=== PATIENT | female | born 1965 | race Caucasian/White ===

== ENCOUNTER 2016-09-13 10:20 | Emergency (ER) | payer MEDICARE ==
--- NOTE | ~2016-09-13 | CR63 ---
[facility] A Service of [facility] RADIOLOGY TEXT RESULTS PATIENT: DAREK ALMEIDA LOCATION: [facility] : 61 UNIT #: [id number] AGE: [address]: CRISTELA VAUGHN SEX: F ORDER DR: [id number] [facility] [address] [place], [place] [address] [id number] E MR#: [id number] Acc #: [id number] NAME: DAREK ALMEIDA. : 1965 SEX: F STUDY DATE/TIME: 09/13/2016 11:22 UNIT: [facility] ROOM: STUDY DESCRIPTION: CR Chest 2 View Attending Physician: Cristela Vaughn Aprn Ordering Physician: Ed Doctor [id number] [facility] Primary Care Physician: Comfort Meier M.D. MEDICAL IMAGING REPORT This report is preliminary unless electronic signature is present EXAM PA and lateral chest 09/13/2016. COMPARISON Previous chest of 08/08/2015 HISTORY Short of breath for 2 years. FINDINGS PA and lateral views are obtained. The cardiovascular configuration of the chest is normal and the lungs are clear. CONCLUSION No active disease. Dictated by... Aakash Vazquez M.D. THIS IS AN ELECTRONICALLY VERIFIED REPORT Aakash Vazquez M.D. at 09/15/2016 2:19 PM Paras TD: 09/13/2016 14:30 JOB #: [id number] MEDICAL IMAGING REPORT Page 1 of 1 COPY
--- NOTE | ~2016-09-13 | EKG ---
PATIENT: DAREK ALMEIDA UNIT #: [id number] Ventricular Rate: 78 BPM Atrial Rate: 78 BPM P-R Interval: 174 ms QRS Duration: 78 ms Q-T Interval: 376 ms QTC Calculation(Bezet): 428 ms P [place]: 39 degrees Calculated R [place]: 23 degrees Calculated T [place]: 38 degrees Diagnosis Line: Normal sinus rhythm Diagnosis Line: Normal ECG Diagnosis Line: When compared with ECG of 08-AUG-2015 20:49, Diagnosis Line: No significant change was found Diagnosis Line: Confirmed by SHWETHA MELENDEZ MD ([id number]) on 09/13/2016 Diagnosis Line: 10:20:42 PM INTERPRETING MD: NORA SUTHERLAND
[~2016-09-13 10:20] MED LIST: ADVIL200 M2; ANTIFUNGAL30 G1 TOP; BACTRIM DS TABL1 TA1 PO; BENADRYL PO; CARAFATE1 G PO; CIPRO PO; CLARITIN10 MG; CLINDAMYCIN HC300 MG PO; FLEXERIL PO; FLEXERIL10 M1 PO; FLEXERIL10 MG PO; FLOMAX0.4 M1 PO; IBUPROFEN PO; IBUPROFEN100 MG PO; IBUPROFEN800 MG PO; IMMODIUM AD PO; KLONOPIN PO; KLONOPIN0.5 MG PO; LASIX; MACROBID 100 M100 MG PO; MEDROL DOSEPAK4 MG PO; MOTRIN400 M1 PO; NAPROXEN PO; NEURONTIN300 MG PO; NYSTATIN-TRIAMC15 G1 TD; NYSTATIN1 EAC1; PHENERGAN PO; PRED MILD5 ML OD; PREDNISONE PO; RANITIDINE HCL150 M1 PO; RITE-AID PHARMACY; ROBAXIN PO; SALINE NOSE SPR45 M1 NS; SINUS RELIEF14.7 M1 NS; SYSTANE ULTRA 010 M1 OU; TORADOL10 MG PO; TRAMADOL HCL50 M2 PO; TUMS500 M1 PO; ULTRAM PO; VICODIN 5/500 T1 TAB PO; ZANTAC150 MG PO
[2016-09-13 10:32] LABS: BASOPHIL% 0.8 % (0-2.5); EOSINOPHIL# 0.1 X10e3 (0-0.7); EOSINOPHIL% 1.4 % (0.0-7.0); HEMATOCRIT 43.1 % (35.0-45.0); LYMPHOCYTE# 1.5 X10e3 (1.0-3.5); LYMPHOCYTE% 25.2 % (17.0-45.0); MEAN CELL VOLUME 82.3 FL (83-96); MEAN CORPUSCULAR HEMOGLOBIN 26.7 PG (28-34); MEAN CORPUSCULAR HGB CONC 32.5 g/dL (30-36); MEAN PLATELET VOLUME 9.4 FL (6.5-11.5); MONOCYTE# 0.3 X10e3 (0-1.0); MONOCYTE% 5.8 % (3.0-12.0); NEUTROPHIL% 66.8 % (40-75); PLATELET COUNT 197 X10e3 (140-420); RED BLOOD COUNT 5.24 X10e (3.90-5.30); RED CELL DISTRIBUTION WIDTH 13.9 % (11.0-15.5)
[2016-09-13 10:37] LABS: DIFF IND NO
[2016-09-13 11:12] LABS: ALBUMIN SERUM 4.3 g/dL (3.5-5.0); BILIRUBIN, DIRECT 0.1 mg/dL (0.0-0.2); BILIRUBIN,INDIRECT 0.3 mg/dL (0.0-0.9); BILIRUBIN,TOTAL 0.4 mg/dL (0.2-2.0); CALCIUM SERUM 9.8 mg/dL (8.4-10.2); CREATININE SERUM 0.7 mg/dL (0.6-1.4); GLOM FILT RATE Estimated 98.9 mL/min (>60); POTASSIUM 4.7 mmol/L (3.5-5.1); PROTEIN TOTAL SERUM 7.7 g/dL (6.0-8.3)
[2016-09-13 12:32] LABS: POC - CKMB <1.0 ng/mL (0.0-7.9); POC - TROPONIN <0.05 ng/mL (<=0.05)
== END 2016-09-13 13:42 | disposition home or self-care (01) ==
LOC: CED 10:20
PROVIDERS: Nurse Practitioner Family
DX: R53.1 Weakness (principal); R11.0 Nausea; Z88.2 Allergy status to sulfonamides; Z88.5 Allergy status to narcotic agent; Z88.8 Allergy status to other drugs, medicaments and biological substances
CPT/HCPCS: 36415; 71020; 80048; 80076; 82553; 84484; 85025; 93005; 99284; J1885; J2405

== ENCOUNTER 2016-12-22 03:23 | Emergency (ER) | payer MEDICARE | END 2016-12-22 05:50 | disposition home or self-care (01) | LOC: CED 03:23 | DX: R05 Cough (principal); M79.605 Pain in left leg; Z88.2 Allergy status to sulfonamides; Z88.5 Allergy status to narcotic agent; Z88.8 Allergy status to other drugs, medicaments and biological substances | CPT/HCPCS: 99283 ==